=== PATIENT | female | born 1955 | race Caucasian/White ===

== ENCOUNTER → 2017-02-07 | Outpatient (CLI) | payer OTHER ==
[~2017-02-07] MED LIST: PRILOSEC20 MG PO
--- NOTE | ~2017-02-07 | BD1 ---
[facility] A Service of [facility] & [facility] RADIOLOGY TEXT RESULTS PATIENT: FLORENCE VALENZUELA LOCATION: [facility] : 57 UNIT #: [id number] AGE: [address]: MARILUZ POSEY MD SEX: F ORDER DR: [id number] [facility] [address] [place], [place] [address] [id number] O MR#: [id number] Acc #: [id number] NAME: FLORENCE VALENZUELA : 1955 SEX: F STUDY DATE/TIME: 02/07/2017 11:13 UNIT: [facility] ROOM: STUDY DESCRIPTION: BD Dexa Bone Dens 1+ Site Attending Physician: Mariluz Posey M.D. Referring Physician: Mariluz Posey M.D. Ordering Physician: Mariluz Posey M.D. Primary Care Physician: Mariluz Posey M.D. MEDICAL IMAGING REPORT This report is preliminary unless electronic signature is present EXAM DXA scan, 02/07/2017 HISTORY Status post menopause with no hormone replacement therapy. Osteopenia. FINDINGS Bone mineral density in the lumbar spine from L1-L4 was 1.059 g/cm2 which is 0.1 standard deviations above the mean when compared to the young adult reference population which is within the range of normal. This is 1.5 standard deviations above the mean when compared to the age-matched population. Compared with 03/28/2012 there has been an increase in bone mineral density in the lumbar spine of 5%. Bone mineral density in the left femoral neck was 0.639 g/cm2 which is 1.9 standard deviations below the mean when compared to the young adult reference population which is characteristic of osteopenia. This is 0.6 standard deviations below the mean when compared to the age-matched population. Compared with 03/28/2012 there has been a decrease in bone mineral density in the left hip of 0.7%. IMPRESSION Bone mineral density in the lumbar spine within the range of normal and within the left hip characteristic of osteopenia. Compared with 03/28/2012 there has been a decrease in bone mineral density in the lumbar spine and the left hip. Dictated by... Thuan Whitaker M.D. THIS IS AN ELECTRONICALLY VERIFIED REPORT Thuan Whitaker M.D. at 02/08/2017 7:17 AM FELICITY/sergio [facility]. [facility] [place] A Service of [facility] & [facility] RADIOLOGY TEXT RESULTS PATIENT: FLORENCE VALENZUELA LOCATION: [facility] : 57 UNIT #: [id number] AGE: [address]: MARILUZ POSEY MD SEX: F ORDER DR: TD: 02/07/2017 16:55 JOB #: [id number] MEDICAL IMAGING REPORT Page 1 of 1 COPY
== END | disposition home or self-care (01) ==
LOC: CWCC 10:54
DX: Z13.820 Encounter for screening for osteoporosis (principal); Z78.0 Asymptomatic menopausal state
CPT/HCPCS: 77080